=== PATIENT | female | born 1960 | race Hispanic/Latino ===

== ENCOUNTER 2019-11-13 08:27 | Day surgery (SDC) | payer MEDICAID ==
[~2019-11-13] VITALS: Ht 154.9 cm; Wt 90.7 kg
[~2019-11-13 08:27] MED LIST: SODIUM CHLORIDE 0.9% 1000ML 1,000 ML IV ONE
[2019-11-13 10:51] VITALS: BP 127/74
[2019-11-13] MEDS ORDERED: ASPI-1026 PO (11:03)
[2019-11-13] MEDS ORDERED: ACET-66 PO (11:03)
[2019-11-13] MEDS ORDERED: LOSA25TA41 PO (11:03)
[2019-11-13] MEDS ORDERED: AZAT50TA17 PO (11:04)
[2019-11-13] MEDS ORDERED: IBUP200C5 PO (11:04)
[2019-11-13] MEDS ORDERED: OMEP40CA13 PO (11:04)
[2019-11-13] MEDS ORDERED: PROPOFOL 10 MG/ML 20ML VIAL IV ONE (11:52)
[2019-11-13] MEDS ORDERED: GLYCOPYRROLATE 0.2 MG/ML 5 ML VIAL ONE (11:53)
[2019-11-13 12:29] VITALS: BP 115/84
[2019-11-13 12:34] VITALS: BP 144/94
[2019-11-13 12:48] VITALS: BP 142/90
== END 2019-11-13 13:04 | disposition home or self-care (01) ==
LOC: ENDO 08:27 → DAH 08:27 → ENDO 13:04
PROVIDERS: ATTEND Internal Medicine Gastroenterology
DX: R10.10 Upper abdominal pain, unspecified (principal); K50.10 Crohn's disease of large intestine without complications; K25.9 Gastric ulcer, unspecified as acute or chronic, without hemorrhage or perforation; K31.89 Other diseases of stomach and duodenum; K29.70 Gastritis, unspecified, without bleeding; K21.9 Gastro-esophageal reflux disease without esophagitis; E78.5 Hyperlipidemia, unspecified; F41.9 Anxiety disorder, unspecified; Z79.82 Long term (current) use of aspirin; Z79.899 Other long term (current) drug therapy; Z98.890 Other specified postprocedural states; Z87.891 Personal history of nicotine dependence; Z72.89 Other problems related to lifestyle; Z82.49 Family history of ischemic heart disease and other diseases of the circulatory system; Z83.3 Family history of diabetes mellitus
CPT/HCPCS: 43239; 45380; A4215; A4221; A4222; A4223; A4606; A4615; A4663; J2704; J3490; J7030

== ENCOUNTER → 2021-09-07 | Outpatient (CLI) | payer MEDICAID ==
[~2021-09-07] MED LIST changes: +ACET-66 PO; +ASPI-1026 PO; +AZAT50TA17 PO; +LOSA25TA41 PO; +OMEP40CA21 PO; -SODIUM CHLORIDE 0.9% 1000ML 1,000 ML IV ONE
== END | disposition home or self-care (01) ==
LOC: RAH 09:37
PROVIDERS: ATTEND Family Medicine
DX: Z12.31 Encounter for screening mammogram for malignant neoplasm of breast (principal)
CPT/HCPCS: 77067

== ENCOUNTER → 2023-01-31 | Outpatient (CLI) | payer MEDICAID ==
[~2023-01-31] MED LIST changes: +CYCL5TAB PO; +IBUP-2088 PO
== END | disposition home or self-care (01) ==
LOC: RAH 11:02
PROVIDERS: ATTEND Obstetrics & Gynecology
DX: Z12.31 Encounter for screening mammogram for malignant neoplasm of breast (principal); N63.0 Unspecified lump in unspecified breast; N64.4 Mastodynia
CPT/HCPCS: 77066